=== PATIENT | male | born 1985 | race Caucasian/White ===

== ENCOUNTER 2016-12-02 12:50 | Emergency (ER) | payer MEDICARE, MEDICAID ==
[~2016-12-02] VITALS: Ht 185.4 cm; Wt 84.1 kg
[~2016-12-02 12:50] MED LIST: LAM25; OMPR20CCR; OXYC1TAB24 PO; PRAZ1CAP; TRAZ-151
[2016-12-02 12:57] VITALS: BP 121/84; PULSE 81; RESP 20; O2SAT 98
[2016-12-02 13:40] LABS: BASOPHILS % (AUTO) 0.2 % (0-3); EOSINOPHILS % (AUTO) 0.6 % (0-5); MONOCYTES % (AUTO) 6.7 % (4-12); Mean Corpuscular Hemoglobin 30.5 pg (27.0-35.0); NEUTROPHILS % (AUTO) 85.1 % (40-74); Platelet Count 210 bil/L (150-400)
[2016-12-02 14:03] LABS: Magnesium 1.6 mg/dL (1.6-2.6)
[2016-12-02] MEDS ORDERED: 0.9% Sodium Chloride 1,000 ML IV ONE ×2 (14:44→14:45)
[2016-12-02] MEDS ORDERED: Ondansetron 2 mg/mL 2 mL Inj IVPUSH ONE (14:45)
--- NOTE | 2016-12-02 14:47 | ED.REPORT ---
HPI-NVD Date of Service Dec 02, 2016 ED Provider: Blanquita Ferreira MD The patient is a 31 year old male who presents to the emergency department complaining of nausea, vomiting, and diarrhea. The patient had a colonoscopy/ endoscopy done 2 days ago with bowl prep prior. When he tried to eat yesterday he continued to have significant diarrhea and vomiting. He has been unable to tolerate PO and now feels lightheaded and dizzy, and has a headache. He had the procedure done for bloody stools and difficulty swallowing. Nursing Notes Stated Complaint: POSSIBLE DEHYDRATION Chief Complaint: General Complaint Nursing Notes Reviewed: Yes Allergies: Coded Allergies: No Known Allergies (Verified , 02/10/16) Scheduled PRN Ondansetron (Zofran) 4 Mg Tablet 4 MG PO Q4H PRN PRN For Nausea oxyCODONE-Acetaminophen 5-325 mg (oxyCODONE-Acetaminophen 5-325 mg) 1 Each Tablet 1-2 TAB PO Q6H PRN PRN For Pain Miscellaneous Medications Omeprazole-Expunged Drug, Do Not Renew! (Omeprazole-Expunged Drug, Do Not Renew! ) 20 Mg Capsule. Prazosin Hcl-Expunged Drug, Do Not Renew! (Minipress-Expunged Drug, Do Not Renew !) 1 Mg Capsule Trazodone-Expunged Drug, Do Not Renew! (Trazodone-Expunged Drug, Do Not Renew!) 50 Mg Tablet lamoTRIgine-Expunged Drug, Do Not Renew! (LaMICtal-Expunged Drug, Do Not Renew! ) 25 Mg Tablet General Time Seen by MD: 14:43 Chief Complaint Nausea, Vomiting, Diarrhea Hx Obtained From: Patient Arrived By: Walk-in Onset Occurred: Yesterday Symptom Duration: Since onset Severity: Current: Moderate Severity: Maximum: Moderate Recent Healthcare: No recent hospitalization, Recent doctor visit, Previous surgery (colonoscopy) Similar Sx Previous: No Past Medical History Past Medical History Seizures Bipolar Born with Hepatits C Reports: Asthma, GERD Reports: Migraines Past Surgical History Colonscopy/endoscopy Reports: Back/neck surgery Family History Noncontributory Smoking History Current Every Day Smoker Social History Alcohol Use: Denies alcohol use Drug Use: THC Other Social History: Local resident Ambulatory Status Independent Review of Systems GI: Reports: Anorexia, Diarrhea, Nausea, Vomiting Neurologic: Reports: Dizziness, Headache, Lightheaded Complete sys rev & neg: except as marked. Physical Exam Initial Vital Signs Vital Signs (First) Date Time Temp Pulse Resp B/P Pulse Ox O2 Delivery O2 Flow Rate FiO2 12/02/16 12:57 36.7 81 20 121/84 98 Room Air 12/02/16 15:46 4 Initial VS: Reviewed Head / Eyes: Atraumatic, Normocephalic, PERRL ENT: Mucous membranes moist, Conjunctiva normal, No scleral icterus Neck: Supple, Non-tender, Full range of motion Cardiovascular: Regular rate & rhythm, Heart sounds normal, Intact distal pulses Extremities: Vascular intact, Neuro intact, No swelling, No tenderness Skin: Warm, Dry, No cyanosis Neurologic: Alert, Oriented, Nonfocal Psychiatric: Mood/affect normal, Behavior normal, Normal thought content General/Constitutional: Awake, Alert, Well appearing Abdomen: Atraumatic, Soft, Non-tender, McBurney's non-tender, No guarding, No rebound, BS normoactive, No distention, No hernia, No palpable mass Respiratory / Chest: Breath sounds = bilat, No respiratory distress Wheezing / Retractions: Positive: Wheezing mild (scattered) Interpretation & Diagnostics Lab Results Interpretation Result Diagram: 12/02/16 1315 12/02/16 1315 Test 12/02/16 13:15 12/02/16 13:32 12/02/16 16:10 White Blood Count 13.0th/mm3 (3.8-10.1) Red Blood Count 5.35mil/mm3 (4.40-5.80) Hemoglobin 16.3g/dL (13.8-17.2) Hematocrit 46.0% (41.0-50.0) Mean Corpuscular Volume 86.0fL (81-100) Mean Corpuscular Hemoglobin 30.5pg (27.0-35.0) Mean Corpuscular Hemoglobin Concent 35.4% (32.0-37.0) Red Cell Distribution Width 13.0% (12.3-15.4) Platelet Count 210bil/L (150-400) Neutrophils (%) (Auto) 85.1% (40-74) Lymphocytes (%) (Auto) 7.2% (14-46) Monocytes (%) (Auto) 6.7% (4-12) Eosinophils (%) (Auto) 0.6% (0-5) Basophils (%) (Auto) 0.2% (0-3) Sodium Level 142mEq/L (134-144) Potassium Level 4.7mEq/L (3.5-5.2) Chloride Level 106mEq/L (97-108) Carbon Dioxide Level 20mmol/L (18-29) Blood Urea Nitrogen 13mg/dL (6-20) Creatinine 0.68mg/dL (0.76-1.27) Estimat Glomerular Filtration Rate 144mL/min (>59) Glucose Level 119mg/dL (60-99) Calcium Level 9.5mg/dL (8.5-10.1) Magnesium Level 1.6mg/dL (1.6-2.6) Total Bilirubin 0.4mg/dL (0.0-1.2) Aspartate Amino Transf (AST/SGOT) 36U/L (0-50) Alanine Aminotransferase (ALT/SGPT) 70U/L (0-44) Alkaline Phosphatase 65U/L (25-150) Total Protein 8.2g/dL (6.4-8.4) Albumin 5.0g/dL (3.4-5.0) Hold Watkins Top Tube Received (Received) Urine Color Yellow (YELLOW) Urine Appearance Clear (CLEAR,HAZY) Urine pH 5.0 (5.0-8.0) Urine Specific [place] 1.025 (1.003-1.035) Urine Protein Negativemg/dL (NEG,TRACE) Urine Glucose (UA) Negativemg/dL (NEGATIVE) Urine Ketones 15mg/dL (NEGATIVE) Urine Occult Blood Small (NEGATIVE) Urine Nitrite Negative (NEGATIVE) Urine Bilirubin Negative (NEGATIVE) Urine Urobilinogen Normalmg/dL (NORMAL) Urine Leukocyte Esterase Negative (NEGATIVE) Urine RBC 0-2/hpf (0-2) Urine WBC 0-5/hpf (0-5) Urine Epithelial Cells None/hpf (NONE-MOD) Urine Crystals None seen (NONE SEEN) Urine Bacteria Few/hpf (NONE-FEW) Urine Hyaline Casts None/lpf (NONE) Urine Granular Casts None seen (NONE SEEN) Urine Waxy Casts None seen (NONE SEEN) Urine Red Blood Cell Casts None seen (NONE SEEN) Urine White Blood Cell Casts None seen (NONE SEEN) Urine Mucus Present (None Seen) Urine Trichomonas None seen (NONE SEEN) Urine Yeast None (NONE SEEN) Urinalysis Comment None Urine Culture Reflexed Not indicated Re-Eval/Medical Decision Source of Hx: Old records Re-Evaluation/Progress : Time of Eval: 16:32 Re-Evaluation/Progress Note: Rechecked the patient. He is feeling much better and was able to tolerate PO. Discussed lab results, diagnosis, and plan for discharge. All questions were addressed. Counseled Regarding: Diagnosis, Lab results, Need for follow-up, When/why to return to ED Discharge & Departure Impression: Primary Impression: Gastroenteritis Disposition: Home Discharge Condition All VS Reviewed: Yes Condition: Stable Additional Instructions: Thank you for entrusting us with your care today. Your lab results today are reassuring. Take Zofran as needed for nausea and vomiting. Drink plenty of fluids to stay hydrated. When you feel like eating I recommend starting with a bland diet. Use Omeprazole as previously prescribed. Followup with your regular doctor next week for re-evaluation. Please return for any new or concerning symptoms. Referrals: Sylvie Prajapati MD (PCP) Scribe Attestation Portions of this note were transcribed by Amanda Joseph. I, Dr. Ferreira personally performed the history, physical exam and medical decision-making; I reviewed and confirmed the accuracy of the information in the transcribed note. Signed by:Batsheva Hwang, 12/02/2016 and 1640. copies to: Sylvie Prajapati MD, Shawna L MD Dec 02, 2016 14:47 Amanda Joseph Dec 02, 2016 15:22
[2016-12-02 15:46] VITALS: BP 137/72; PULSE 74; RESP 17; O2SAT 97
[2016-12-02 16:33] LABS: APPEARANCE,URINE CLEAR (CLEAR,HAZY); COLOR,URINE YELLOW (YELLOW)
[2016-12-02 16:34] LABS: OCCULT BLOOD,URINE SMALL (NEGATIVE); UROBILINOGEN,URINE NORMAL (NORMAL)
[2016-12-02] MEDS ORDERED: ONDA4TAB6 PO (16:36)
[2016-12-02 16:50] VITALS: BP 137/72; PULSE 74; RESP 17; O2SAT 97
== END 2016-12-02 16:50 | disposition home or self-care (01) ==
LOC: SED 12:50
DX: K52.9 Noninfective gastroenteritis and colitis, unspecified (principal); K21.9 Gastro-esophageal reflux disease without esophagitis; J45.909 Unspecified asthma, uncomplicated; Z86.19 Personal history of other infectious and parasitic diseases; F17.200 Nicotine dependence, unspecified, uncomplicated
CPT/HCPCS: 36415; 80053; 81000; 83735; 85025; 96374; 99284; J2405; J7030